=== PATIENT | male | born 1955 | race Caucasian/White ===

== ENCOUNTER 2018-12-19 | Emergency (ER) | payer MEDICARE, OTHER | END 2018-12-19 21:44 | disposition short-term general hospital (02) | DX: I21.9 Acute myocardial infarction, unspecified (principal); E11.9 Type 2 diabetes mellitus without complications; I10 Essential (primary) hypertension; Z79.84 Long term (current) use of oral hypoglycemic drugs | CPT/HCPCS: 36415; 71045; 80053; 83690; 84484; 85025; 93005; 96365; 96366; 96375; 99285; 99291; A9270 ==

== ENCOUNTER 2018-12-19 21:47 | Outpatient (CLI) | payer MEDICARE, OTHER | END 2018-12-19 21:48 | disposition short-term general hospital (02) | LOC: EMS 21:47 | PROVIDERS: ATTEND Surgery | DX: I21.9 Acute myocardial infarction, unspecified (principal) | CPT/HCPCS: A0425; A0426 ==

== ENCOUNTER 2019-04-09 12:48 | Outpatient (CLI) | payer MEDICARE, OTHER ==
[2019-04-09 14:01] VITALS: BP 149/78
--- NOTE | 2019-04-09 14:01 | SLEEP CARE CONSULTATION ---
Information from patient questionnaire entered by Judith Griffin. I have reviewed and concur with the information entered by Judith Griffin. This document represents the service I personally performed and the decisions made by me, Suraj Pretty MD, [facility]. History of Present Illness Reason for Visit: New patient Chief Complaint: reports: Other (heart attack) Duration of Symptoms: unknown Usual bedtime: 2230 Time it takes to fall asleep: 10-20 minutes Snores at night: Yes (once in a while) Observed to quit breathing while asleep: No Sleeps alone due to snoring: No Number of times waking at night: 1 Reasons for waking at night: reports: Pain, Bathroom Toss, Turn, or Twitch while sleeping: Yes Recalls having dreams: No Usually gets out of bed at: 0700 Feels refreshed in the morning: Yes Morning headache: No Sleepy or fatigued during the day: No Ever fallen asleep while driving: No Takes day naps: No Dreams during day naps: No Prior sleep studies: No Additional HPI information: I had the pleasure of seeing Mr. Linn today regarding the possibility of him having a sleep disorder. As you know, he is a 63 year old gentleman who recently had a heart attack. He lost 65 lbs in the past few years. The patient tells me that he normally goes to bed around 10:30 pm, and it takes him approximately 10 - 20 minutes to fall asleep. He has been told that he snores only once in a while. He has also never been observed to stop breathing in his sleep. His can still sleep in the same bed. She had obstructive sleep apnea-hypopnea and lost weight. He can recall waking up on the average of 1 time during the night. Most of the time he wakes up because of having to use the bathroom. He has awakened occasionally because of his own snoring, choking, and having to gasp for air but only when he was 65 lb heavier. There is not a lot of tossing and turning in his sleep. No somniloquy (sleep talking) or somnambulism (sleep walking). Generally there is no recollection of dreams. In the morning he usually gets up out of the bed around 7 a.m. feeling refreshed and rested. He usually does not have a morning headache. During the day he does not feel sleepy and fatigued. His score on [place] Sleepiness Scale is 5 out of 24. He has never fallen asleep while driving nor has had any accident due to sleepiness. He usually does not take naps during the day. Upon falling asleep during the day he denies having vivid dreams. He has never had sleep paralysis, experienced cataplexy or symptoms of restless leg syndrome. He denies having impaired concentration during the day. Subjective Initial [place] Sleepiness Scale score: 5 Past Medical History Past Medical History: reports: Hypertension, Diabetes, Arthritis, Coronary Heart Disease Social History The patient's occupation is not employed. Patient is and lives in [place]. Have you smoked in the past 12 months: Yes Cigarettes per day (20/pack): 10 Years of smokin Quit date: 12/20/18 Smoking Pack Years: 15.0 Alcohol use: No Caffeine use: Yes Caffeine amount and frequency: 3 cups/day Allergies and Home Medications Drug allergies reviewed: Yes Home medication list reviewed: Yes Review of Systems Weight loss over past 5 years: 65 Cardiovascular: reports: high blood pressure Respiratory: denies: shortness of breath, wheeze, sputum production, chronic cough, other Gastrointestinal: reports: diarrhea Urinary: reports: urgency Neurological: denies: headaches, seizure, head trauma, disorientation, speech dysfunction, gait or balance problems, fainting or unconsciousness, other Psychiatric: denies: Attention Deficit Hyperactivity, anxiety, depression, mood disorder, claustrophobia, other Ear/Nose/Throat: reports: wisdom teeth removed Endocrine: denies: thyroid disease, history of goiter, sluggishness, too hot or cold, excessive thirst, increased appetite, increased urination, unexplained weakness, other Musculoskeletal: reports: joint pain, joint swelling, mobility problems Immunologic: reports: rash, itching Physical Exam Vital signs obtained and entered by: Dr. Pretty Blood Pressure: 149/78 Cuff size: regular Heart Rate: 49 O2 Saturation: 98 Height: 6 ft 3 in Weight: 265 lb Body Mass Index: 33.1 BMI Classification: Obesity Class 1 Neck circumference: 18 Mood/affect: normal HEENT: No craniofacial malformation Nostrils: patent to airflow Turbinates: normal Septum: midline Mouth and throat: narrow oropharynx Soft palate: long Hard palate: normal Uvula: normal Uvula visualization: 50% Mallampati Class II Tongue: normal in size Tonsils: small Chin and jaw: normal size and position Neck: normal w/o lymphadenopathy or thyromegaly Heart: regular rate and rhythm (bradycardic) Lungs: clear bilaterally Abdomen: soft, non-tender Extremities: no edema or clubbing Neurologic: intact, no focal deficits Impression and Plan IMPRESSION: 1. Possible Obstructive Sleep Apnea-Hypopnea Syndrome, as suggested by snoring and history of hypertension and ischemic heart disease. Narrow oropharynx and obesity are common predisposing factors for obstructive sleep apnea-hypopnea syndrome. Pathophysiology of sleep-disordered breathing was discussed. I recommend proceeding to polysomnography to confirm the diagnosis and to assess severity. If he has significant sleep disordered breathing, a manual CPAP titration study will also be performed to find the optimal treatment pressure. I informed the patient of what the sleep studies involve and after some discussion, he agreed to proceed. Plan: 1. Schedule polysomnography and return in 1 to 2 weeks after the study to discuss result and initiate therapy. 2. Avoid long distance driving or when feeling sleepy. 3. Avoid alcohol, sedative and muscle relaxant around bedtime. 4. Attempt to lose some weight. I spent 100% of this 20 minute visit face to face with the patient with greater than 50% of this was spent time counseling the patient and coordination of care.
== END 2019-04-09 12:49 | disposition home or self-care (01) ==
LOC: SC 12:48
PROVIDERS: ATTEND Internal Medicine Pulmonary Disease
DX: R06.83 Snoring (principal); I10 Essential (primary) hypertension; I25.9 Chronic ischemic heart disease, unspecified; Z87.891 Personal history of nicotine dependence; E66.9 Obesity, unspecified; Z68.33 Body mass index [BMI] 33.0-33.9, adult
CPT/HCPCS: 99203; G0463; 99212

== ENCOUNTER 2019-04-20 19:20 | Outpatient (CLI) | payer MEDICARE, OTHER | END 2019-04-20 19:21 | disposition home or self-care (01) | LOC: SC 19:20 | PROVIDERS: ATTEND Internal Medicine Pulmonary Disease | DX: G47.61 Periodic limb movement disorder (principal); I10 Essential (primary) hypertension; I25.10 Atherosclerotic heart disease of native coronary artery without angina pectoris | CPT/HCPCS: 95810 ==

== ENCOUNTER 2019-05-30 13:51 | Outpatient (CLI) | payer MEDICARE, OTHER ==
[2019-05-30 15:41] VITALS: BP 144/60
--- NOTE | 2019-05-30 15:41 | SLEEP CARE CONSULTATION ---
Information from patient questionnaire entered by Nahed Grant. I have reviewed and concur with the information entered by Nahed Grant. This document represents the service I personally performed and the decisions made by me, Aliza White RN, MSN, [employer]. History of Present Illness Accompanied by: Spouse Initial [place] Sleepiness Scale score: 5 Current [place] Sleepiness Scale score: 6 Additional HPI information: SANDIP FISCHER returns with spouse for follow up of the recently performed polysomnography and patient was informed of the findings. I explained the pathophysiology behind obstructive sleep apnea. I strongly encouraged the patient to continue to lose weight and explained how weight affects risk of apnea. Patient does not have significant sleep disordered breathing but has elevated AHI in supine position so advised positional therapy. Methods to achieve positional management therapy were discussed; such as, positioning with pillows, wearing a T-shirt with tennis balls sewn into the back, Rematee shirt, Zzomba belt and Slumberbump belt. Pamphlets provided on how to obtain the commercially available products. Since he has a history of cardiac disease it was stressed the importance of reducing apnea risk with rationale explained. Patient also has snoring. Snoring can be reduced by weight loss. Weight loss is best achieved with diet consult. Patient instructed to contact PCP for referral. Snoring can also be treated with an oral appliance from a dentist. Advised to check insurance coverage. In addition, an ENT evaluation can be do to see if other treatment is indicated. Patient counseled not drink alcohol less than 4 hours before bedtime as it can increase snoring and apnea. Patient was cautioned about risks of drowsy driving until sleepiness symptoms resolve. Patient denies drowsy driving. AASM patient education NON PAP treatment for sleep apnea given and reviewed. Sleep Study - Results Polysomnography/Home Sleep Study results: The quality of the study is good. The patient had normal sleep efficiency. The sleep architecture was normal as well. Respiratory monitoring showed no significant sleep disordered breathing (AHI = 3.5) or hypoxia (iva oxygen saturation of 90%). The few respiratory events occurred almost exclusively during supine sleep (supine AHI = 16.4; non-supine = 0.39). Snore was light to moderate in intensity. There was moderate periodic leg movement of sleep not associated with sleep fragmentation. Cardiac rhythm was normal sinus rhythm with brief sinus bradycardia (lowest heart rate of 39 beats per minute). No abnormal behavior (parasomnia) observed during the night. Allergies and Home Medications Known drug allergies: Yes (erythromycin) Home medication list reviewed: Yes Allergy and home medication list: aspirin 81mg metformin 500mg bid Atorvastatin 80mg daily losartan 25mg bid brilinta 40mg bid spironolactone 50mg daily Review of Systems Review of systems same as previous: Yes Physical Exam Blood Pressure: 144/60 Cuff size: long Heart Rate: 55 O2 Saturation: 98 Height: 6 ft 4 in Weight: 275 lb 3.2 oz Body Mass Index: 33.5 BMI Classification: Obesity Class 1 Impression and Plan 1. Snoring but no significant sleep disordered breathing except in supine position. Patient advised to avoid supine sleep using one of methods discussed. Patient advised that often weight loss will reduce snoring as well as apnea risk. He is currently in process of losing weight for cardiac health. He had questions re BMI goals and BMI chart guidelines. I explained that these are only guidelines. 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 Generally the goal is to reduce his abdominal girth to reduce cardiac and diabetes risks. An oral appliance can also be used for snoring. This would require a dental consultation. Patient cautioned not to use other online appliances as can cause bite issues. A list of dentists can be given if desires and advised to check if insurance covers. An ENT consult can also be helpful to determine if any other treatment is an option. I will have patient follow up in 2 months to see if treatment beneficial. At that time it will be determined if a sleep study is indicated in supine position to see if further treatment is indicated. The sleep study and this visit note will be sent to patient aquaculture farm manager as requested by patient and spouse. Patient spouse advised to discuss her sleep concerns to her PCP so can get a referral to a sleep specialist for further evaluation of her choice. 2. Periodic limb movement, mild, that did not fragment patients sleep. Periodic limb movement of sleep (PLMS) is characterized by episodes of repetitive limb movements that occur during sleep and usually involve the lower limbs. The etiology is unknown but can be associated with restless leg syndrome (RLS), neuropathy, spinal cord diseases, kidney disease, rheumatological disorders, narcolepsy, obstructive sleep apnea, and REM sleep behavior disorder. Other factors that can increase PLMS and/or RLS are heredity and iron deficiency as reflected by a low serum ferritin level below 50 to 75mcg / L. Several medications can precipitate or aggravate PLMS such as selective serotonin re- uptake inhibitor antidepressants, tricyclic antidepressants, lithium, and dopamine receptor antagonists with the exception of bupropion. Caffeine can also aggravate PLMS and should be avoided. Sleep hygiene methods can also improve sleep as well as lifestyle changes such as regular exercise. Patient was advised that further evaluation is indicated due to increase in ankle pain since increase in physical activity. * Positional therapy. * Continue to to lose weight * Avoid alcohol consumption near bedtime * Send copy of this report and sleep study results to aquaculture farm manager * Followup with PCP for further evaluation of ankle pain * Return in 2 months for follow up. I will check efficacy of treatment at that time. Time Spent with Patient (minutes): 40 I spent 100% of this visit face to face with the patient with greater than 50% of this was spent time counseling the patient and coordination of care.
== END 2019-05-30 13:52 | disposition home or self-care (01) ==
LOC: SC 13:51
PROVIDERS: ATTEND Nurse Practitioner Family
DX: R06.83 Snoring (principal); G47.61 Periodic limb movement disorder; E66.9 Obesity, unspecified; Z68.33 Body mass index [BMI] 33.0-33.9, adult
CPT/HCPCS: 99215; G0463; 99212

== ENCOUNTER 2021-04-29 10:47 | Outpatient (CLI) | payer MEDICARE, OTHER ==
[2021-04-29 11:21] LABS: ALT ALANINE AMINOTRANSFERASE 24 IU/L (10-60); AST ASPARTATE AMINOTRANSFERASE 22 IU/L (10-42); CHOL/HDL RATIO 2.4 (<5.0); CHOLESTEROL 110 mg/dL; HDL CHOLESTEROL 45 mg/dL; LDL CHOLESTEROL,CALCULATED 47 mg/dL; TRIGLYCERIDES 88 mg/dL; VLDL CHOLESTEROL 18 mg/dL
== END 2021-04-29 10:48 | disposition home or self-care (01) ==
LOC: LAB 10:47
PROVIDERS: ATTEND Internal Medicine Cardiovascular Disease
DX: E78.6 Lipoprotein deficiency (principal)
CPT/HCPCS: 36415; 80061; 83721; 84450; 84460

== ENCOUNTER 2023-11-25 08:53 | Outpatient (CLI) | payer OTHER ==
--- NOTE | 2023-11-26 18:11 | Ultrasound Report ---
PROCEDURE: Abdomen Limited INDICATIONS: ELEVATED LIVER ENZYMES TECHNIQUE: Real-time focused scanning was performed of the abdomen, with image documentation. COMPARISONS: None. FINDINGS: Evaluation is limited secondary to patient body habitus/rib artifact and bowel gas. Liver: Liver is normal in size and mildly heterogeneous in echotexture. Main portal vein is patent w ith hepatopedal flow. Gallbladder: No gallstones, sludge, wall thickening or pericholecystic edema. Biliary ducts: Intrahepatic bile ducts are non-dilated. Extrahepatic bile duct caliber measures 3 m m. Normal is 6-7 mm or less in diameter, or 10 mm or less post-cholecystectomy. Pancreas: Not well seen secondary to bowel gas. Right kidney: Normal in size and echotexture. Right kidney measures 11 cm long. No hydronephrosis or nephrolithiasis. No solid masses. No complex renal cystic lesions which require follow-up. IVC: Intrahepatic inferior vena cava is patent. Miscellaneous: No free abdominal fluid. IMPRESSION: Targeted ultrasound of the left cheek demonstrates no sonographic abnormality. Liver parenchyma is mildly heterogeneous which is nonspecific and may be seen in the setting of paren chymal disease such as steatosis/cirrhosis. Reviewed by: Chanel Fung MD on 11/26/2023 6:10 PM PDT Approved by: Chanel Fung MD on 11/26/2023 6:10 PM PDT Station ID: [id number]
== END 2023-11-25 08:54 | disposition home or self-care (01) ==
LOC: DI 08:53
PROVIDERS: ATTEND Internal Medicine
DX: R74.8 Abnormal levels of other serum enzymes (principal); R93.2 Abnormal findings on diagnostic imaging of liver and biliary tract